=== PATIENT | male | born 1965 ===

== ENCOUNTER 2023-05-30 13:48 | Emergency (ER) | payer OTHER, SELFPAY ==
[2023-05-30 14:13] VITALS: BP 125/72; PULSE 94; RESP 16; TEMP 37.2; O2SAT 97; BMI 28.8
--- NOTE | 2023-05-30 14:20 | DI.US.S_ITS ---
PROCEDURE: US PERIPH VENOUS LOW EXTREM LT INDICATIONS: SWELLING W/O INJURY FROM KNEE TO ANKLE TECHNIQUE: Real-time imaging, as well as color and pulse Doppler interrogation, were performed of the lower extremity deep veins from the inguinal ligament to the popliteal fossa. COMPARISON: None. FINDINGS: The common femoral, femoral and popliteal veins are normally compressible, and free of intraluminal thrombus. Color and pulse Doppler demonstrate normal phasic intraluminal flow. There is normal augmentation response to distal compression maneuver. Large left calf hematoma measuring 5.9 x 2.8 x 5.9 cm. It is a heterogeneous hypoechoic lesion without internal vascularity. Reactive lymphadenopathy in the groin, with a lymph node measuring 2.4 x 0.7 x 2.1 cm. IMPRESSION: 1. Negative left lower extremity duplex venous ultrasound for DVT. 2. Left calf hematoma measuring 5.9 cm in maximum diameter. Dictated by: Marc Valentine M.D. on 05/30/2023 at 15:55 Approved by: Marc Valentine M.D. on 05/30/2023 at 16:22
--- NOTE | 2023-05-30 16:57 | PC.NURSE ---
Marco wrap placed, ice pack placed, elevation encouraged while waiting in lobby per Dr. Rosenberg.
[2023-05-30 18:02] LABS: Add Manual Diff / Slide Review NO; Basophils Absolute Auto 100 /uL (0-100); Basophils Percent Auto 0.3 % (0-2); Eosinophils Absolute Auto 100 /uL (0-450); Eosinophils Percent Auto 0.3 % (2-4); Hematocrit 43.3 % (41-53); Hemoglobin 14.6 g/dL (13.5-17.5); Lymphocytes Absolute Auto 1300 /uL (1100-4500); Lymphocytes Percent Auto 7.3 % (25-40); Mean Corpuscular HGB Conc 33.7 % (30-36); Mean Corpuscular Hemoglobin 30.2 PG (26-34); Mean Corpuscular Volume 89.5 fL (80-100); Monocytes Absolute Auto 1400 /uL (0-900); Monocytes Percent Auto 7.9 % (3-14); Neutrophils Absolute Auto 14800 /uL (1500-7000); Neutrophils Percent Auto 84.2 % (50-75); Platelet Count 291 X10^3/uL (150-400); Red Blood Cell Count 4.84 X10^6/uL (4.5-5.9); Red Cell Distribution Width 14.3 % (11.6-14.8); White Blood Cell Count 17.6 X10^3/uL (4.5-11.0)
[2023-05-30 18:12] LABS: Alanine Aminotransferase 21 IU/L (<50); Albumin 4.4 g/dL (3.5-5.0); Albumin Globulin Ratio 1.5 (1.0-2.8); Alkaline Phosphatase 71 U/L (38-126); Aspartate Aminotransferase 21 IU/L (17-59); BUN Creatinine Ratio 18.8 (6-22); Bilirubin Total 0.7 mg/dL (0.2-1.3); Blood Urea Nitrogen 15 mg/dL (9-20); Calcium 9.1 mg/dL (8.4-10.2); Carbon Dioxide 26 mmol/L (22-32); Chloride 103 mmol/L (98-107); Estimated Glomerular Filt Rate > 60 mL/min (>60); Globulin 2.9 g/dL (1.7-4.1); Glucose 98 mg/dL (70-100); HEMOLYSIS < 15 (0-50); Potassium 3.8 mmol/L (3.4-5.1); Sodium 137 mmol/L (137-145); Total Protein 7.3 g/dL (6.3-8.2)
--- NOTE | 2023-05-30 18:14 | ED_ITS ---
HPI - Extremity Problem General Chief complaint: Extremity Problem,Nontraumatic Stated complaint: LT LEG SWOLLEN PAIN Time Seen by Provider: 05/30/23 18:10 Source: patient and family Mode of arrival: Wheelchair History of Present Illness HPI Narrative: 57-year-old male daily smoker without significant chronic medical history presents with his in the chief complaint of pain, swelling and bruising in his left leg for the past few days. He denies any fever or chills. He denies recent travel or history of clot. He denies any memorable injury or trauma. He states that he 1st noticed it perhaps Friday night or into Friday morning. He had been working in the garden and it started aching a bit and has progressively worsened. He now has increased pain and swelling and difficulty ambulating because it hurts. He denies fever or chills. He denies nausea, vomiting or diarrhea. He denies any chest pain or shortness of breath. Related Data Previous Rx's Medication Instructions Recorded cephalexin 500 mg capsule 500 mg PO Q6H 7 days #28 caps 05/30/23 hydrocodone 5 mg-acetaminophen 325 1 tab PO Q4-6H PRN pain #10 tabs 05/30/23 mg tablet ondansetron 4 mg disintegrating 4 mg PO TID-QID PRN nausea and 05/30/23 tablet vomiting #10 tabs Allergies Allergy/AdvReac Type Severity Reaction Status Date / Time No Known Drug Allergies Allergy Verified 05/30/23 14:13 Review of Systems Review of Systems Narrative: GENERAL: Denies chills, fatigue, malaise, fever, sweats. HEENT: Denies sinus pain, ear pain, sore throat, difficulty swallowing, dizziness. RESPIRATORY: Denies dyspnea, cough, wheezing, hemoptysis, sputum. CARDIOVASCULAR: Denies chest pain, palpitations, orthopnea, edema, GASTROINTESTINAL: Denies nausea, vomiting, abdominal pain, diarrhea, constipation, melena. : Denies dysuria, frequency, incontinence, hematuria, urinary retention. MUSCULOSKELETAL: See HPI SKIN: See HPI NEUROLOGIC: Denies weakness, headache, numbness, change in speech, confusion, seizures, incoordination. PSYCHIATRIC: No concerning psychosocial issues. 12 point review of systems is negative except for those stated above Patient History Social History Smoking Status: Current every day smoker Smoking Status: Current every day smoker Substance Use Type: does not use Exam Narrative Exam Narrative: GENERAL: [57] year old patient appears stated age. Well-developed patient, in mild distress. HEAD: Atraumatic. Normocephalic. EYES: Pupils equal round and reactive. Extraocular motions intact. No scleral icterus. No injection or drainage. ENT: Nose without bleeding, purulent drainage. Throat without erythema, tonsillar hypertrophy or exudate. Airway patent. NECK: Trachea midline. Non tender CARDIOVASCULAR: Regular rate and rhythm without murmurs, gallops, or rubs. RESPIRATORY: Clear to auscultation. Breath sounds equal bilaterally. No wheezes, rales, or rhonchi. GASTROINTESTINAL: Abdomen soft, non-tender, nondistended. EXTREMITIES: Moderate swelling and warmth of left lower extremity from the knee down to the ankle with some dependent ecchymosis in the lower foot. Distal pulses are palpable, sensation intact. Compartments are soft. No erythema BACK: Nontender without deformity or crepitance. No flank tenderness. NEURO: AOx3. SKIN: No rash or erythema of visible areas Initial Vital Signs Initial Vital Signs: Vital Signs Temperature 99.0 F 05/30/23 14:13 Pulse Rate 94 H 05/30/23 14:13 Respiratory Rate 16 05/30/23 14:13 Blood Pressure 125/72 05/30/23 14:13 Pulse Oximetry 97 05/30/23 14:13 Oxygen Delivery Method Room Air 05/30/23 14:13 Course Orders Ordered: ED Orders 05/30/23 14:20 US periph venous low extrem lt Stat 05/30/23 17:55 CBC Auto Diff [Complete Blood Count AUTO DIFF] Stat CMP [Comprehensive Metabolic Panel] Stat Prothrombin Time INR Stat Discontinued Medications Hydrocodone Bitart/Acetaminophen (Hydrocodone/Acet 5/325 Prepack) 1 bottle MISC SEEINSTR ONE Stop: 05/30/23 19:50 Cefazolin Sodium (Cephalexin 250 Mg Cap Prepack) 1 bottle MISC SEEINSTR ONE Stop: 05/30/23 19:50 Ondansetron HCl (Ondansetron 4 Mg Odt Prepack) 1 bottle MISC SEEINSTR ONE Stop: 05/30/23 19:50 Vital Signs Vital signs: Vital Signs - 8 hr 05/30/23 14:13 Temperature 99.0 F Pulse Rate 94 H Respiratory Rate 16 Blood Pressure 125/72 Pulse Oximetry 97 Oxygen Delivery Method Room Air MDM - Extremity (Nontraumatic) Lab Data 05/30/23 17:55 05/30/23 17:55 Labs: Lab Results 05/30/23 05/30/23 05/30/23 Range/Units 17:55 17:55 17:55 WBC 17.6 H (4.5-11.0) X10^3/uL RBC 4.84 (4.5-5.9) X10^6/uL Hgb 14.6 (13.5-17.5) g/dL Hct 43.3 (41-53) % MCV 89.5 (80-100) fL MCH 30.2 (26-34) PG MCHC 33.7 (30-36) % RDW 14.3 (11.6-14.8) % Plt Count 291 (150-400) X10^3/uL Neut % (Auto) 84.2 H (50-75) % Lymph % (Auto) 7.3 L (25-40) % [place] % (Auto) 7.9 (3-14) % Eos % (Auto) 0.3 L (2-4) % Baso % (Auto) 0.3 (0-2) % Neut # (Auto) 28608 H (4255-7043) /uL Lymph # (Auto) 1300 (2639-0687) /uL [place] # (Auto) 1400 H (0-900) /uL Eos # (Auto) 100 (0-450) /uL Baso # (Auto) 100 (0-100) /uL PT 12.7 (10.1-12.7) SECONDS INR 1.1 (0.9-1.3) Sodium 137 (137-145) mmol/L Potassium 3.8 (3.4-5.1) mmol/L Chloride 103 (98-107) mmol/L Carbon Dioxide 26 (22-32) mmol/L BUN 15 (9-20) mg/dL Creatinine 0.80 (0.66-1.25) mg/dL Estimated GFR > 60 (>60) mL/min BUN/Creatinine Ratio 18.8 (6-22) Glucose 98 (70-100) mg/dL Calcium 9.1 (8.4-10.2) mg/dL Total Bilirubin 0.7 (0.2-1.3) mg/dL AST 21 (17-59) IU/L ALT 21 (<50) IU/L Alkaline Phosphatase 71 (38-126) U/L Total Protein 7.3 (6.3-8.2) g/dL Albumin 4.4 (3.5-5.0) g/dL Globulin 2.9 (1.7-4.1) g/dL Albumin/Globulin Ratio 1.5 (1.0-2.8) MDM Narrative Medical decision making narrative: [57] year old patient presents with left calf swelling Multiple etiologies for patient's symptoms considered including, but not limited to: [DVT versus cellulitis versus hematoma versus other] Prior Charts reviewed in our EMR Primary Historian: patient Labs reviewed and interpreted by myself: Leukocytosis with relative left shift, electrolytes, platelets and INR within normal Imaging reviewed: Lower extremity ultrasound notes hematoma, no DVT Patient's symptoms improved over duration of stay with above-stated therapies. Hematoma noted in the absence of injury or obvious platelet or INR abnormalities. There is a leukocytosis in the patient has a low-grade temp, for this reason patient placed on antibiotics. No signs of DVT or sepsis, pain controlled, neurovascularly intact. Patient given crutches, pain control, follow-up instructions Findings and discharge diagnosis discussed with patient/family followed by verbalization of understanding Return precautions discussed with patient/family whom verbalize understanding of diagnosis and plan Discharge Plan Departure Patient Disposition: Home Clinical Impression: Hematoma of left lower leg Instructions: DI for Hematoma (Bruise) Activity Restrictions/Additional Instructions: *You have been diagnosed with [ left leg hematoma] *What to do: *Please continue to take your regular medications as directed. [x ] New medication prescriptions sent to your pharmacy: [ [facility]] [ ] New medication written as a paper prescription [ ] No new medications given *Please follow up with your primary care provider in 2-3 days, call for an appointment. Let them know you were seen in the Emergency Department and that we ask that you be seen in follow up. We will electronically transmit a record of today's note if your PCP is in our system *If you do not have a primary care provider please contact the [facility] Resource line at [phone]. They will ask some questions about your medical history and help get you set up with a doctor in the community. *Return to Emergency Department if you should have any new, worsening or concerning symptoms, such as [fever greater than 101 F, shaking chills, worsening pain, persistent vomiting or other bothersome symptoms] Prescriptions: New hydrocodone-acetaminophen 5-325 mg tablet 1 tab PO Q4-6H PRN (Reason: pain) Qty: 10 0RF cephalexin 500 mg capsule 500 mg PO Q6H 7 Days Qty: 28 0RF ondansetron 4 mg tablet,disintegrating 4 mg PO TID-QID PRN (Reason: nausea and vomiting) Qty: 10 0RF Referrals: Jessica Henderson PA-C [Primary Care Provider] - Stand Alone Forms: Patient Portal/API
[2023-05-30 18:21] LABS: INR 1.1 (0.9-1.3); Prothrombin Time 12.7 SECONDS (10.1-12.7)
[2023-05-30] MEDS: ONDANSETRON 4 MG ODT PREPACK 1 BOTTLE MISC (20:06)
[2023-05-30] MEDS: cephALEXin 250 MG CAP PREPACK 1 BOTTLE MISC (20:06)
[2023-05-30] MEDS: HYDROCODONE/ACET 5/325 PREPACK 1 BOTTLE MISC (20:07)
[2023-05-30 20:08] VITALS: BP 139/75; PULSE 97; RESP 12; O2SAT 97
== END 2023-05-30 20:26 | disposition home or self-care (01) ==
PROVIDERS: Emergency Medicine; Emergency Provider Emergency Medicine; Family Provider Physician Assistant Medical; PCP Physician Assistant Medical
DX: S80.12XA Contusion of left lower leg, initial encounter (principal); X58.XXXA Exposure to other specified factors, initial encounter
CPT/HCPCS: 36415; 80053; 85025; 85610; 93971; 99282; 99283